=== PATIENT | male | born 1935 | race Caucasian/White ===

== ENCOUNTER → 2016-10-15 | Outpatient (CLI) | payer OTHER ==
--- NOTE | 2016-10-16 13:04 | CPEEG ---
[f rep st] ELECTROENCEPHALOGRAM DATE OF STUDY: 10/15/2016 DATE OF INTERPRETATION: October 15, 2016. INTERPRETATION: This 4-hour video EEG recording is abnormal due to the presence of potentially epileptogenic abnormalities over the right frontal head regions. These findings would be consistent with a focal seizure disorder. In addition, there was a moderately severe degree of focal slowing and asymmetry over the right frontal head regions. 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 REPORT: This 4-hour video EEG contains 9 Hz alpha activity of the posterior head regions. The primary feature of this recording was the presence of spikes and sharp waves over the right frontal head region (maximal at electrode F8). In addition, there is a moderately severe degree of focal polymorphic theta and delta slowing over the right frontal head regions. The delta frequency slowing was moderate in amplitude. In addition, there was a moderate degree of asymmetry over the right frontal head region (breach rhythm). There was no specific additional activation with photic stimulation or hyperventilation. The patient fell asleep during the study. There was continued activation of right frontal spikes and sharp waves during sleep. During the video EEG monitoring session, the patient did not have any clinical events or electrographic seizures. /[id number]/MODL MTDD
== END ==
LOC: FCPNEURO 08:50
PROVIDERS: ATTEND Psychiatry & Neurology Neurology
DX: G40.109 Localization-related (focal) (partial) symptomatic epilepsy and epileptic syndromes with simple partial seizures, not intractable, without status epilepticus (principal); R94.01 Abnormal electroencephalogram [EEG]